=== PATIENT | male | born 1950 | race Caucasian/White ===

== ENCOUNTER → 2016-12-21 | Outpatient (CLI) | payer MEDICARE ==
--- NOTE | 2016-12-21 11:13 | RADIOLOGY REPORT PS360 ---
CT CALCIUM SCORING W/3D CLINICAL INDICATION: ABN EKG, JAG, SOB,FATIGUE, CHEST VALDOVINOS ORDERING PHYSICIAN: TJ SEPULVEDA MD PATIENT AGE: 66 years COMPARISON: None FINDINGS: Coronary artery calcium score is 57 indicating a mild plaque burden and moderate cardiovascular disease risk. IMPRESSION: Coronary artery calcium score is 57 indicating a mild plaque burden and moderate cardiovascular disease risk.
--- NOTE | 2016-12-22 10:06 | RADIOLOGY REPORT PS360 ---
PROCEDURE: 2-D M-mode and color Doppler study INDICATIONS FOR THE TEST: Chest pain COPD Heart Murmur Tobacco Smoking Palpitations Fatigue Syncope Edema Hypertension Diabetes Mellitus Rheumatic Fever SOB MTZ Obesity Hyperlipidemia Family History HD Additional History ABN EKG PATIENT INFORMATION HEIGHT: 72 WEIGHT:278 GENDER: Male B/P:142/89 2-D/M-MODE INTERPRETATION: 2-D MEASUREMENTS OBSERVED VALUES IN CMS Right Ventricular Dimension (RVDd) 2.2 Interventricular Septum (Thickness)(IVsd) .9 Left Ventricular Internal Dimensions(LVIDd) 5.4 Left Ventricular Posterior Wall (Thickness)(LVPWd) .9 Aortic Root 3.3 Aortic Cusp Separation 1.8 Left Atrial Dimensions (LAD) 4.0 2D 1. Left atrium is qualitatively mildly enlarged, left ventricle is normal size, there is mild qualitative concentric left ventricular hypertrophy present, visually estimated ejection fraction 55% with no obvious regional wall motion abnormality. 2. The right atrium is normal size, right ventricle is normal size and contractility. 3. The aortic valve is thickened and calcified, leaflet continue to display good mobility. 4. The mitral and tricuspid valve are structurally normal. 5. The pulmonic valve is not well visualized. 6. No significant pericardial effusion noted. DOPPLER INTERROGATION: Doppler interrogation of the aortic mitral and tricuspid valvular presence of mild mitral and tricuspid regurgitation, tricuspid regurgitant jet velocity insufficient for calculation of the right ventricular systolic pressure, grade 1 diastolic dysfunction seen without tissue Doppler evidence of raised left atrial pressure. CONCLUSION: 1. Mildly enlarged left atrium, normal left ventricular size, mild concentric left ventricular hypertrophy, visually estimated ejection fraction of 55% with no obvious regional wall motion abnormality, grade 1 diastolic dysfunction seen without tissue Doppler evidence of raised left atrial pressure. 2. Thickened and calcified aortic valve without aortic stenosis or aortic insufficiency. 3. Mild mitral and tricuspid regurgitation. 4. No significant pericardial effusion noted.
--- NOTE | 2016-12-22 14:17 | RADIOLOGY REPORT PS360 ---
History and Indications: Obesity, hyperlipidemia, family history, shortness of breath fatigued back pain and abnormal EKG. Procedure: Patient exercised on Celso protocol 9 minutes, resting heart rate was 76 bpm, resting blood pressure 142/89, with exercise maximum heart rate achieved was 1 46 bpm which is greater than 85% of the maximum predicted heart rate and a blood pressure was 168/100. Test was started due to shortness of breath patient has constant back pain. Patient has good exercise capacity achieved 10.1mets of workload on treadmill, the blood pressure response to exercise was hypertensive. Electrocardiogram: Resting electrocardiogram showed sinus rhythm right ventricular conduction delay, with exercise [address] segment depression noted from the baseline EKG, the EKG portion of the exercise Myoview is positive for ischemia. Cardiac stress and resting SPECT images: Stress and the suspect images were obtained using technetium 99 Myoview 10.6 mCi at rest and 32.6 mCi at stress, gated SPECT further analysis of segmental wall motion and calculation of the ejection fraction also done. Cardiac stress and the suspect images show a mild fixed defect in the inferior wall with normal contractility in the gated SPECT is likely secondary to soft tissue attenuation, no reversible ischemia seen. Computer derived ejection fraction is 61% with no obvious regional wall motion abnormality, right ventricle is mildly enlarged with normal contractility. Conclusion: 1. The EKG portion of the exercise Myoview is positive for ischemia patient has good exercise capacity achieved 10.1mets of workload on treadmill, the blood pressure response to exercise was hypertensive, test was started due to shortness of breath patient has constant back pain. 2. No obvious scintigraphic evidence of reversible ischemia seen at this level of exercise, computer derived ejection fraction is 61% with no obvious regional wall motion abnormality, right ventricle is mildly enlarged with normal contractility.
== END ==
LOC: RAD 10:15 → EDBD 11:00 → RAD 11:00
DX: R94.31 Abnormal electrocardiogram [ECG] [EKG] (principal); R07.9 Chest pain, unspecified; R06.02 Shortness of breath; R60.0 Localized edema; E78.5 Hyperlipidemia, unspecified; R53.83 Other fatigue; Z82.49 Family history of ischemic heart disease and other diseases of the circulatory system; K21.9 Gastro-esophageal reflux disease without esophagitis; E66.9 Obesity, unspecified; F41.9 Anxiety disorder, unspecified; G47.33 Obstructive sleep apnea (adult) (pediatric)
CPT/HCPCS: A9502